=== PATIENT | male | born 1955 | race American Indian/Alaskan Native ===

== ENCOUNTER 2018-10-13 07:50 | Day surgery (SDC) | payer MEDICARE ==
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
[2018-10-13] MEDS ORDERED: NACL 0.9% 1000 ML 1,000 ML IV SCH (09:00)
--- NOTE | 2018-10-13 09:00 | Anesthesia Day of Surgery ---
Anesthesia Day of Surgery - Day of Surgery Patient Examined: Yes Patient H&P Reviewed: Yes Patient is NPO: Yes
[2018-10-13] MEDS ORDERED: WATER FOR IRRIG STERILE IR ONE (09:03)
[2018-10-13] MEDS ORDERED: DIPRIVAN 10 MG/ML IV ONE ×3 (09:05→10:04)
--- NOTE | 2018-10-13 09:55 | Short Stay Summary ---
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 - History H&P: obtained from office Past Medical History: other (hepatitis C) Past Surgical History: No surgical history Social history: no significant social history - Allergies and Medications Current Medications: Allergies No Known Allergies Allergy (Verified 10/13/18 08:23) Home Medications Medication Instructions Recorded Confirmed Last Taken Type amLODIPine 10 mg PO DAILY 10/13/18 10/13/18 10/12/18 History Active Medications Sodium Chloride (Nacl 0.9% 1000 Ml) 1,000 mls @ 50 mls/hr IV DIRECT BARBARA Last Admin: 10/13/18 08:45 Dose: 50 mls/hr Documented by: - Physical exam General appearance: no acute distress Lungs: Clear to auscultation Heart: Regular rate, Normal S1, Normal S2 Gastrointestinal: normal, normoactive bowel sounds, no tenderness, no distended Neurological: Normal speech - Brief post op/procedure progress note Date of procedure: 10/13/18 Pre-op diagnosis: History of hepatitis C, history of gastritis, history of colon polyp Post-op diagnosis: other (Gastritis, colon polyps) Procedure: EGD with biopsy and colonoscopy with snare polypectomy Anesthesia: MAC Findings: Gastritis, colon polyps Surgeon: TREY SALEEM Estimated blood loss: minimal Pathology: list Specimen disposition: to lab Condition: stable - Disposition Condition at discharge: Good Disposition: DC-01 TO HOME OR SELFCARE Short Stay Discharge Plan Follow up with: PRIMARY CARE, [Primary Care Provider] - 7 Days
[2018-10-13] MEDS ORDERED: NEO SYNEPHRINE/NS Syringe(OR USE) IV ONE (10:00)
[2018-10-13] MEDS ORDERED: XYLOCAINE MPF 2% ONE (10:00)
--- NOTE | 2018-10-13 10:00 | Operative Report ---
Operative Report Operative Report: Esophagogastroduodenoscopy Procedure Note Date of procedure: 10/13/2018 Endoscopist: Elie Fletcher Pre-op diagnosis: History of hepatitis C, History of gastritis, abdominal pain, GERD Post-op diagnosis: gastritis Anesthesia: MAC Complications: No immediate complications Estimated blood loss: minimal Procedure: After consent was obtained, the patient was placed in the left lateral decubitus position. The fujinon endoscope was inserted into the patient's mouth under direct vision, and advanced into the 2nd portion of the duodenum without difficulty. The patient tolerated the procedure well. The views of the mucosa were good. Patient's vital signs were monitored continuously throughout the procedure. Findings: There was erythematous mucosa diffusely in the antrum. Biopsies were obtained. The rest of the stomach appeared normal. The GE junction was regular at 43 cm from the incisors. No signs of hiatal hernia noted. No signs of esophageal varices, esophagitis, or stricture noted. The duodenum appeared normal throughout the visualized portion of the duodenum. Impression: 1. Antral gastritis. Gastric biopsies obtained. Recommendations: 1. Start omeprazole. 2. Follow up on pathology results. 3. Follow up in GI clinic.
--- NOTE | 2018-10-13 10:04 | Operative Report ---
Operative Report Operative Report: Colonoscopy Procedure Note with snare polypectomy Date of procedure: 10/13/2018 Endoscopist: Elie Fletcher Pre-op diagnosis/indication: personal history of colon polyp Post-op diagnosis: Descending and sigmoid colon polyps, diverticulosis in sigmoid colon MEDICATIONS: MAC COMPLICATIONS: No immediate complications ESTIMATED BLOOD LOSS: none DESCRIPTION OF PROCEDURE: After consent was obtained, the patient was placed in the left lateral decubitis position. The fujinon colonoscope was inserted into the rectum under direct vision, and advanced to the cecum and terminal ileum without difficulty. The quality of prep was good. The patient tolerated the procedure well. The patient's vital signs were monitored continuously throughout the procedure. FINDINGS: There was one 6 mm sessile polyp in the descending colon removed with cold snare polypectomy. There were 3 <5 mm sessile polyps removed with cold forcep polypectomy. There were 5 <5 mm sessile polyps in the sigmoid colon removed with cold forcep polypectomy. There were multiple small diverticula in the sigmoid colon. Rest of the exam was normal. IMPRESSION: 1. Descending colon polyps, removed with cold snare polypectomy x 1 and cold forcep x 3. 2. Sigmoid colon polyps x 5, removed with cold forcep. 3. Sigmoid diverticulosis. RECOMMENDATIONS: 1. Recommend high fiber diet. 2. Follow up pathology results. 3. Repeat colonoscopy for surveillance in 3-5 years based on pathology results. 4. Follow up in Gi clinic.
[2018-10-13 10:11] VITALS: BP 150/84
== END 2018-10-13 07:51 | disposition home or self-care (01) ==
LOC: GIO 07:50
PROVIDERS: ATTEND Internal Medicine Gastroenterology
DX: D12.4 Benign neoplasm of descending colon (principal); K29.50 Unspecified chronic gastritis without bleeding; K63.5 Polyp of colon; K21.9 Gastro-esophageal reflux disease without esophagitis; K57.30 Diverticulosis of large intestine without perforation or abscess without bleeding; B19.20 Unspecified viral hepatitis C without hepatic coma; F17.210 Nicotine dependence, cigarettes, uncomplicated; I10 Essential (primary) hypertension; Z79.01 Long term (current) use of anticoagulants; Z86.010 Personal history of colon polyps
CPT/HCPCS: 43239; 45380; 45385; 88305; 88342; J2704; J7030; J2370